=== PATIENT | male | born 2000 | race Caucasian/White ===

== ENCOUNTER 2020-03-09 01:52 | Outpatient (CLI) | payer MEDICAID, SELFPAY ==
[2020-03-13 14:00] LABS: Patient Race White; SARS-CoV-2 RNA Undetected (Undetected); SARS-CoV-2 Specimen Source Nasal
== END 2020-03-09 02:12 ==
PROVIDERS: PCP Pediatrics; Visit Provider Pediatrics
DX: Z20.828 Contact with and (suspected) exposure to other viral communicable diseases (principal)
CPT/HCPCS: U0003

== ENCOUNTER 2023-03-07 15:52 | Outpatient (REF) | payer BC, SELFPAY | END 2023-03-07 15:53 | disposition home or self-care (01) | LOC: LBN 15:52 | PROVIDERS: Visit Provider Nurse Practitioner Family | DX: J02.9 Acute pharyngitis, unspecified (principal) | CPT/HCPCS: 87070 ==

== ENCOUNTER 2023-03-09 21:38 | Outpatient (REF) | payer BC, SELFPAY ==
[2023-03-09 21:35] LABS: Abs Immature Grans 0.02 10^3/uL (0.0-0.06); Absolute Basophil Count 0.01 10^3/uL (0.0-0.2); Absolute Eosinophil Count 0.03 10^3/uL (0.0-0.7); Absolute Lymphocyte Count 1.05 10^3/uL (1.2-3.4); Absolute Monocyte Count 0.62 10^3/uL (0.1-0.8); Absolute Neutrophil Count 4.35 10^3/uL (1.2-6.7); Basophils % 0.2; Eosinophils % 0.5; HCT 43.5 % (40.0-50.0); HGB 15.6 g/dL (13.5-17.5); Immature Grans % 0.3; Lymphocytes % 17.3; MCHC 35.9 % (32.0-36.0); MCV 81 fL (80-95); MPV 10.9 fL (8.0-11.0); Monocytes % 10.2; Neutrophils % 71.5; Platelet Count 217 10^3/uL (130-400); RBC 5.38 10^6/uL (4.36-5.78); RDW 11.7 % (11.8-14.1); WBC 6.08 10^3/uL (4.4-10.8)
[2023-03-09 21:43] LABS: BUN 9 mg/dL (7-18); CREATININE 1.1 mg/dL (0.70-1.30); Calcium 9.4 mg/dL (8.5-10.1); Chloride 102 mmol/L (98-107); Estimated GFR 97.34 (mL/min/1.73m2); Glucose 93 mg/dL (74-106); Potassium 3.8 mmol/L (3.5-5.1); Sodium 139 mmol/L (136-145)
[2023-03-11 11:35] LABS: EBNA IgG Positive (Negative); EBV Interpretation (See Note); VCA IgG Positive (Negative); VCA IgM Negative (Negative)
== END 2023-03-09 21:39 | disposition home or self-care (01) ==
LOC: LBN 21:38
PROVIDERS: Visit Provider Nurse Practitioner Family
DX: J02.9 Acute pharyngitis, unspecified (principal)
CPT/HCPCS: 80048; 85025; 86664; 86665; 87070

== ENCOUNTER 2024-03-08 07:56 | Emergency (ER) | payer SELFPAY ==
[2024-03-08 07:59] VITALS: PULSE 117; RESP 16; TEMP 36.5; O2SAT 98
[2024-03-08 08:02] VITALS: BP 165/79; PULSE 115; RESP 16; TEMP 36.5; O2SAT 99
--- NOTE | 2024-03-08 08:08 | ED.GENADUL_ITS ---
Discharge Plan Disposition Patient Disposition: Home Condition: Stable Discharge Details Clinical Impression: CAP (community acquired pneumonia) Primary Care Provider: Shameka Felipe ED Provider: Matt Herr Home Meds and New Rx's Prescriptions: New azithromycin [Zithromax Z-Axel] 250 mg tablet See Rx Instructions .ROUTE .COMPLEX Qty: 6 0RF Rx Instructions: For 250 mg dose pack: take 500 mg today (day 1), then 250 mg for 4 days (days 2-5) prednisone 20 mg tablet 60 mg PO DAILY 4 Days Qty: 12 0RF amoxicillin-pot clavulanate 875-125 mg tablet 1 tab PO BID Qty: 14 0RF Discharge Instructions Additional Instructions: Your x-ray shows that you have a lung infection called pneumonia If you are not better within a week follow-up with your primary care provider If you feel more ill, have difficulty breathing or persistent vomiting return to the emergency department for reevaluation. You can take 1000 mg of acetaminophen and 600 mg of ibuprofen every 6 hours as needed. HPI General Mode of arrival: ambulatory . Date/Time Provider Initiated Documentation: 03/08/24 07:56 . Limitations to Documentation: no limitations . Information obtained by: patient . History of Present Illness 23 year old M presents to the emergency department with the chief complaint of cough, described as moderate, Patient started experiencing this week(s) (1) and it has been constant. No relieving factors improve symptom(s), No exacerbating factors reported . Patient notes denies chest pain and nausea/vomiting. Patient did receive the following treatments prior to arrival, none Related Data Home Medications ?Medication ?Instructions ?Recorded ?Confirmed amoxicillin 875 mg-potassium 1 tab PO BID #14 tabs 03/08/24 clavulanate 125 mg tablet azithromycin 250 mg tablet See Rx Instructions PO .COMPLEX #6 03/08/24 (Zithromax Z-Axel) tabs prednisone 20 mg tablet 60 mg (3 x 20 mg) PO DAILY 4 days 03/08/24 #12 tabs Previous Rx's ?Medication ?Instructions ?Recorded amoxicillin 875 mg-potassium 1 tab PO BID #14 tabs 03/08/24 clavulanate 125 mg tablet azithromycin 250 mg tablet See Rx Instructions PO .COMPLEX #6 03/08/24 (Zithromax Z-Axel) tabs prednisone 20 mg tablet 60 mg (3 x 20 mg) PO DAILY 4 days 03/08/24 #12 tabs Allergies Allergy/AdvReac Type Severity Reaction Status Date / Time No Known Allergies Allergy Unverified 03/08/24 07:58 General Stated Complaint: RespSymp ROCHELLE: 4 Review of Systems All systems reviewed & are unremarkable except as noted in HPI and below Constitutional Constitutional: Reports chills, Denies fever(s) and Denies weakness Cardiovascular Cardiovascular: Denies chest pain and Denies dyspnea Respiratory Respiratory: Reports cough and Denies dyspnea Gastrointestinal Gastrointestinal: Denies abdominal pain, Denies nausea and Denies vomiting Neurologic Neurologic: Denies weakness Exam Const General: no acute distress Orientation: alert HENMT Head: normal to inspection Ears: external ears normal General nose exam: external nose normal Mouth: moist mucous membranes Eyes General: appearance normal, both eyes and all related structures Neck Neck: normal visual inspection Resp Effort & Inspection: normal respiratory effort and able to speak in complete sentences Auscultation: rhonchi Cardio Jugular venous pressure: no JVD Rate: regular rate Heart Sounds: no murmurs GI Palpation: soft and nontender Skin General skin exam: no rashes or lesions noted Neuro General: patient alert and patient oriented x3 Extrem General: normal to inspection, no pedal edema and no calf tenderness bilaterally Psych Mental Status: mental status grossly normal Course Vital Signs Vital signs: Vital Signs Temperature 36.5 C 03/08/24 07:59 Pulse 117 H 03/08/24 07:59 Respiratory Rate 16 03/08/24 07:59 Pulse Oximetry 98 03/08/24 07:59 Temperature 36.5 C 03/08/24 08:02 Temperature Source Temporal Artery Scan 03/08/24 08:02 Pulse 115 H 03/08/24 08:02 Respiratory Rate 16 03/08/24 08:02 Respiratory Effort Normal, Short of Breath 03/08/24 08:03 Respiratory Depth Normal 03/08/24 08:03 Blood Pressure 165/79 H 03/08/24 08:02 Blood Pressure Position Sitting 03/08/24 08:02 Pulse Oximetry 99 03/08/24 08:02 Oxygen Delivery Method Room Air 03/08/24 08:02 Oxygen Flow Rate 0 03/08/24 07:59 Pain Level 8 03/08/24 08:02 Medical Decision Making 23-year-old male who denies any significant past medical history comes in with 1 week of cough that is nonproductive and feeling short of breath especially when he has coughing fits. He also has had chills, denies any fevers. He denies any smoking or drug use. He is well-appearing on exam ambulating without any signs of respiratory distress. He has clear rhinorrhea, normal posterior pharynx, midline uvula, no submandibular swelling or pain over the hyoid, no restricted neck movements. He does have apical wheezing bilaterally with rhonchi at the bases. Intermittent harsh sounding cough. No leg swelling or calf tenderness. Her symptoms seem consistent with respiratory infection. Will check a Fluvid and a chest x-ray. Given he is afebrile well-appearing do not feel any blood work indicated as my concern for sepsis is low. Will treat with a DuoNeb and prednisone and reassess. Patient's x-ray shows a left upper lobe pneumonia, Fluvid negative. Patient feels better after neb. He is hemodynamically stable. He is speaking full sentences. I will start him on Augmentin and azithromycin and also provide a short course of prednisone. He will follow-up with his PCP if not improving return precautions given Differential Diagnosis Differential Diagnosis: URI, COVID, bronchitis, pneumonia Quality:SDOH Health Related Social Needs: No Data to Display PFSH All Active Problems (Updated 03/08/24 @ 09:20 by Matt Herr MD) CAP (community acquired pneumonia) (Acute) Surgical History No pertinent past surgical history Family History Mother No problems noted. Father No problems noted. Brother ADHD Brother ADHD Brother ADHD Generalized anxiety disorder Brother No problems noted. Sister No problems noted. Maternal Grandfather No problems noted. Maternal Grandmother Diabetes Ovarian cancer Paternal Grandfather No problems noted. 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 Sexually active: Yes Do you think of yourself as: straight/heterosexual Current gender identity: male What is your relationship status?: living with partner How often do you talk on the phone with friends or family?: three or more times per week How often do you get together with friends or relatives?: three or more times per week How often do you attend buddhist or gnosticism services?: decline to answer Do you belong to any clubs or organized social groups?: no Panel score (0-1 are the most socially isolated patients): 2 NHANES result reviewed/action taken: Yes Duration: 15-30 minutes/day Eva/Denominational: Non cheondoism Special eva needs: No Seatbelt use: always Helmet use: Yes Helmet use: always Drive intox or ride w/intox 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
--- NOTE | 2024-03-08 08:28 | DI.RAD_ITS ---
Exam(s) XR CHEST 2V PA LATERAL EXAM: XR CHEST 2V PA LATERAL CLINICAL HISTORY: cough TECHNIQUE: 2D digital imaging was performed. Two views. COMPARISON: No exams were available for comparison FINDINGS: HEART: Normal size. Aorta: Not dilated. PULMONARY VASCULATURE: Normal. MEDIASTINUM: Unremarkable. LUNGS: Patchy infiltrate left upper lobe. Right lung is clear. PLEURAL SPACE: No pleural effusion or pneumothorax. BONE:Unremarkable for age. SOFT TISSUES: Unremarkable. IMPRESSION: Left upper lobe pneumonia. DATA REPOSITORY: RADIATION DOSE DELIVERED:
[2024-03-08 08:29] VITALS: PULSE 115; RESP 8; O2SAT 98
[2024-03-08] MEDS: Albuterol/Ipratropium 3 ML UPD VIAL UPD (08:29)
[2024-03-08] MEDS: predniSONE 20 MG TAB 60 MG PO (08:29)
[2024-03-08 08:30] VITALS: PULSE 107; O2SAT 98
[2024-03-08 09:15] LABS: COVID-19 PCR Negative (Negative); Influenza A PCR Negative (Negative); Influenza B PCR Negative (Negative); RSV PCR Negative (Negative)
[2024-03-08 09:16] LABS: Source Nasopharynx
[2024-03-08] MEDS: Albuterol HFA 8 GM 60 PUFF INH IH (09:35)
[2024-03-08] MEDS: Inhaler, Assist Device 1 EACH MC (09:36)
[2024-03-08 09:39] VITALS: BP 164/74; PULSE 124; RESP 18; O2SAT 100
== END 2024-03-08 09:39 | disposition home or self-care (01) ==
LOC: ER 09:49
PROVIDERS: Emergency Provider Emergency Medicine; PCP Nurse Practitioner Family
DX: J18.9 Pneumonia, unspecified organism (principal)
CPT/HCPCS: 87637; 94640; 99284; 71046; J7512; J7620